=== PATIENT | male | born 1980 | race Caucasian/White ===

== ENCOUNTER 2017-07-22 12:50 | Emergency (ER) | payer SELFPAY ==
[2017-07-22 13:02] VITALS: BP 184/132; PULSE 101; RESP 20; TEMP 99.4; O2SAT 100
[2017-07-22] MEDS ORDERED: TETANUS/DIPHTHERIA TOXOID ADULT 0.5 ML VIAL IM ONE (13:15)
[2017-07-22] MEDS ORDERED: ceFAZolin INJ 1,000 MG VIAL IM ONE (13:15)
[2017-07-22] MEDS ORDERED: LIDOCAINE HCL 2% 20 ML VIAL INFIL ONE (13:15)
[2017-07-22] MEDS ORDERED: PERC5TAB12 PO (14:02)
[2017-07-22] MEDS ORDERED: CEPH-460 PO (14:12)
--- NOTE | 2017-07-22 14:16 | PD ---
HPI Chief Complaint: Laceration/Skin Injury Time Seen by Provider: 13:06 Travel History International Travel<30 days: No Contact w/Intl Traveler<30days: No Traveled to known affect area: No History of Present Illness HPI Patient's 36-year-old male presenting to emergency Department for evaluation of laceration to his left bicep. Injury occurred approximately 3 hours prior to arrival. Patient states his pain is a 4 out of 10, he is uncertain when his last tetanus vaccine was. [facility] Past Medical History Medical History: Denies Significant Hx Tetanus Vaccination: > 5 Years Past Surgical History Surgical History: No Previous Surgery Social History Alcohol Use: Yes (daily) Tobacco Use: Yes Substance Use: No Allergies-Medications (Allergen,Severity, Reaction): Coded Allergies: No Known Drug Allergies (Verified Allergy, Unknown, 07/22/17) Reported Meds & Prescriptions Reported Meds & Active Scripts Active No Active Prescriptions or Reported Medications Review of Systems Except as stated in HPI: all other systems reviewed are Neg Musculoskeletal: Positive: Pain Skin: Positive Other (laceration) Physical Exam Narrative GENERAL: Well-developed, well-nourished, alert male. Resting comfortably in no acute distress. SKIN: Warm and dry. 8cm laceration to the left ac and distal bicep. HEAD: Atraumatic. Normocephalic. EYES: Pupils equal and round. No scleral icterus. No injection or drainage. ENT: No nasal bleeding or discharge. Mucous membranes pink and moist. NECK: Trachea midline. No JVD. CARDIOVASCULAR: Regular rate and rhythm. RESPIRATORY: No accessory muscle use. Clear to auscultation. Breath sounds equal bilaterally. MUSCULOSKELETAL: Extremities without clubbing, cyanosis, or edema. No obvious deformities. Full range of motion in left hand and elbow. Patient is neurovascularly intact. NEUROLOGICAL: Awake and alert. No obvious cranial nerve deficits. Motor grossly within normal limits. Five out of 5 muscle strength in the arms and legs. Normal speech. PSYCHIATRIC: Appropriate mood and affect; insight and judgment normal. Data Data Last Documented VS Vital Signs Date Time Temp Pulse Resp B/P (MAP) Pulse Ox O2 Delivery O2 Flow Rate FiO2 07/22/17 13:02 99.4 101 20 184/132 (149) 100 Room Air Orders Orders Cefazolin Inj (Ancef Inj) (07/22/17 13:15) Tetanus/Diphtheria Tox Adult (Tetanus/Di (07/22/17 13:15) Lidocaine 2% Inj (Xylocaine 2% Inj) (07/22/17 13:15) Humerus (Min 2vws) (07/22/17 ) MDM Medical Decision Making Medical Screen Exam Complete: Yes Emergency Medical Condition: Yes Interpretation(s) Vital Signs Date Time Temp Pulse Resp B/P (MAP) Pulse Ox O2 Delivery O2 Flow Rate FiO2 07/22/17 13:02 99.4 101 20 184/132 (149) 100 Room Air Differential Diagnosis Tendon injury versus laceration versus retained foreign body versus other Narrative Course Patient is a 36-year-old male that presented to emergency for evaluation of a laceration to his left arm that he sustained at work on a piece of metal. Patient is neurovascularly intact. The procedure report for laceration repair. Patient was given 1 g Ancef IM in the emergency department, his tetanus vaccine was updated. Patient was given wound care instructions, he was advised to return to emergency department immediately for any new or worsening symptoms , discussed signs and symptoms of infection with patient. Patient was advised stitches need to come out in 10-14 days. Patient verbalized understanding of discharge instructions. Patient is stable for discharge. Procedures Procedure Narrative LACERATION LOCATION: Left bicep LENGTH: 8 cm NUMBER OF STITCHES/MELANIE: 12 stitches REPAIR: The area of the laceration was prepped with Betadine and sterilely draped. The laceration was infiltrated with 1% lidocaine. The wound was copiously irrigated and explored without evidence of foreign body, tendon injury or neurovascular injury. The wound was closed using 4-0 Ethilon. This was a 1 layer repair. A sterile dressing was applied. The patient was advised to keep the dressing clean and dry. Patient tolerated the procedure well. Diagnosis Primary Impression: Laceration of arm Qualified Codes: S41.112A - Laceration without foreign body of left upper arm , initial encounter Additional Impression: Need for prophylactic vaccination with tetanus-diphtheria (TD) Referrals: Primary Care Physician 1 week Patient Instructions: Care For Your Stitches (ED), General Instructions, Laceration (ED), Stitches Removal (ED) Additional Instructions: Keep stitches clean and dry You may shower but avoid swimming in pools, ocean or lakes until wound is healed completely Complete full course of antibiotics as prescribed Return to the emergency department immediately for any new or worsening symptoms Stitches will need to be removed in 10-[address] machinery while taking narcotic pain medication Med/Other Pt SpecificInfo: Prescription(s) given Scripts Cephalexin (Keflex) 500 Mg Cap 500 MG PO Q12H for Infection, #14 CAP 0 Refills Prov: Jennifer Ly 07/22/17 Oxycodone-Acetaminophen (Percocet) 5-325 mg Tab 1 TAB PO Q4H Y for PAIN, #15 TAB 0 Refills Prov: Osvaldo Vázquez MD 07/22/17 Disposition: 01 DISCHARGE HOME Condition: Stable Jennifer Ly Jul 22, 2017 14:16
[2017-07-22 14:31] VITALS: BP 168/92; TEMP 98.7
== END 2017-07-22 14:41 | disposition home or self-care (01) ==
LOC: NEPD 12:50
DX: S41.112A Laceration without foreign body of left upper arm, initial encounter (principal); W26.8XXA Contact with other sharp object(s), not elsewhere classified, initial encounter; Y99.0 Civilian activity done for income or pay; Z23 Encounter for immunization
CPT/HCPCS: 12004; 90471; 90714; 96372; 99284; J0690